=== PATIENT | female | born 1995 | race Hispanic/Latino ===

== ENCOUNTER 2018-04-10 23:55 | Emergency (ER) | payer OTHER ==
[2018-04-11 00:08] VITALS: BMI 24.2
[2018-04-11 00:11] VITALS: RESP 16; O2SAT 96
--- NOTE | 2018-04-11 02:09 | ED PDOC ---
HPI: Head Injury Time Seen by Provider: 04/11/18 02:08 Chief Complaint (Nursing): Trauma Chief Complaint (Provider): scalp laceration History Per: Patient Additional Complaint(s): 22-year-old female presents with scalp laceration. Patient exited a cab and then realized that she left her phone in the cab. She went to [employer] after the vehicle and accidentally hit the back of her head on the corner of the door. Patient did not sustain loss of consciousness. She states tetanus is up-to- date. She does have mild localized pain to affected area with minimal active bleeding. PMD: none Past Medical History Reviewed: Historical Data Vital Signs: Last Vital Signs Temp 98.7 F 04/11/18 00:07 Pulse 103 H 04/11/18 00:07 Resp 16 04/11/18 00:07 BP 107/71 04/11/18 00:07 Pulse Ox 96 04/11/18 00:07 - Medical History PMH: No Chronic Diseases - Surgical History Surgical History: No Surg Hx - Family History Family History: States: No Known Family Hx - Living Arrangements Living Arrangements: With Friends/Others - Social History Current smoker - smoking cessation education provided: No Alcohol: Social Drugs: Denies - Immunization History Hx Tetanus Toxoid Vaccination: Yes (last booster 2 years ago) - Allergies Allergies/Adverse Reactions: Allergies Allergy/AdvReac Type Severity Reaction Status Date / Time No Known Allergies Allergy Verified 04/11/18 00:07 Review of Systems ROS Statement: Except As Marked, All Systems Reviewed And Found Negative Eyes: Negative for: Vision Change Gastrointestinal: Negative for: Nausea, Vomiting Neurological: Positive for: Headache, Other (scalp laceration, no LOC). Negative for: Dizziness Physical Exam - Reviewed Nursing Documentation Reviewed: Yes Vital Signs Reviewed: Yes - Physical Exam Appears: Positive for: Well, Non-toxic, No Acute Distress Head Exam: Positive for: NORMAL INSPECTION. Negative for: ATRAUMATIC (3 cm stellate laceration noted to midposterior scalp, minimal active bleeding, mild soft tissue swelling, no foreign body) Skin: Positive for: Normal Color. Negative for: Rash Eye Exam: Positive for: EOMI, Normal appearance, PERRL ENT: Positive for: Normal ENT Inspection Neck: Positive for: Normal, Painless ROM Neurologic/Psych: Positive for: Alert, water service supervisor II-XII (grossly intact), Oriented, Gait (steady). Negative for: Motor/Sensory Deficits, Aphasia, Facial Droop - Laboratory Results Urine POC: Sent To The Lab For Verification (test was declined, patient is certain she is not ) - ECG O2 Sat by Pulse Oximetry: 96 Pulse Ox Interpretation: Normal Medical Decision Making Medical Decision Makin22 y/o with scalp laceration Plan: Lac repair PO motrin Patient was advised to keep area clean and dry and take NSAIDs for pain as needed. Advised wound check in 2 days and staple removal in 10-14 days. Procedures - Laceration/Wound Repair 3 cm scalp laceration Wound Length (cm): 3 Wound's Depth, Shape: irregular, stellate Wound Explored: clean Betadine Prep?: Yes Anesthesia: Lidocaine w/ Epi Volume Anesthetic (ccs): 12 Wound Debrided: moderate Wound Repaired With: Marieal (8) Wound Complexity: Simple Sterile Dressing Applied?: No Splint Applied?: No Progress: Procedure was tolerated well by patient, no complications Disposition - Clinical Impression Clinical Impression: Scalp laceration - Patient ED Disposition Is Patient to be Admitted: No Counseled Patient/Family Regarding: Diagnosis, Need For Followup - Disposition Referrals: [facility] [Outside] Disposition: Routine/Home Disposition Time: 03:18 Condition: STABLE Additional Instructions: Keep wound clean and dry. Ice affected area to reduce swelling. Tylenol or Advil for pain as needed. Wound check 2-3 days, staple removal 10-14 days. Instructions: Laceration Repair With [place] (DC) Forms: Curse (Lao)
[2018-04-11] MEDS ORDERED: Lidocaine 1% w Epi 1:100,000 Inj ONE (02:19)
[2018-04-11] MEDS ORDERED: Povidone Iodine Topical 10% Sol ONE (03:02)
[2018-04-11 03:36] VITALS: BP 108/70; PULSE 76; TEMP 98.2
== END 2018-04-11 03:33 | disposition home or self-care (01) ==
LOC: H.ER 23:55
DX: S01.01XA Laceration without foreign body of scalp, initial encounter (principal); W22.8XXA Striking against or struck by other objects, initial encounter; Y92.410 Unspecified street and highway as the place of occurrence of the external cause